=== PATIENT | female | born 1960 | race Caucasian/White ===

== ENCOUNTER 2017-12-24 10:42 | Emergency (ER) | payer OTHER ==
[~2017-12-24] VITALS: Ht 165.1 cm; Wt 63.5 kg
[2017-12-24 10:46] VITALS: Ht 165.1 cm; Wt 63.5 kg
[2017-12-24 12:23] LABS: microscopic required? NO
[2017-12-24 12:30] LABS: CALCIUM 9.7 mg/dL (8.5-10.1); CARBON DIOXIDE 28.1 mmol/L (21-32); CHLORIDE SERUM 104 mmol/L (98-107); CREATININE SERUM 0.7 mg/dL (0.6-1.0); GFR1 > 60 mL/min; GLUCOSE SERUM 93 mg/dL (74-106); POTASSIUM SERUM 4.7 mmol/L (3.5-5.1); SODIUM SERUM 138 mmol/L (136-145)
[2017-12-24 12:34] LABS: urine erythrocyte NEGATIVE (NEGATIVE)
[2017-12-24 12:35] LABS: ALBUMIN 3.9 g/dL (3.4-5.0); ALKALINE PHOSPHATASE 100 U/L (46-116); ALT/SGPT 51 U/L (14-59); AST/SGOT 29 U/L (15-37); BILIRUBIN TOTAL 0.6 mg/dL (0.20-1.00); TOTAL PROTEIN, SERUM 7.7 g/dL (6.4-8.2)
[2017-12-24 12:55] LABS: AMPHETAMINE QUAL UR NONE DETECTED (NEG <=1000)
[2017-12-24 13:17] LABS: RED CELL DISTRIBUTION WIDTH 14.6 % (11.5-14.5)
[2017-12-24 13:18] LABS: PLATELET COUNT 551 x10^3mcL (130-400)
[2017-12-24 13:22] LABS: MONOCYTE 8 % (0-7); SEGMENTED NEUTROPHILS 49 % (37-75); rbc morphology (normal/abnorm) ABNORMAL (NORMAL)
[2017-12-24 13:38] VITALS: BP 139/89
== END 2017-12-24 13:38 | disposition home or self-care (01) ==
LOC: ED 10:42
PROVIDERS: Emergency Medicine
DX: R06.02 Shortness of breath (principal); F12.10 Cannabis abuse, uncomplicated
CPT/HCPCS: 36415; 36600; J7613; J7644; Q0092

== ENCOUNTER 2018-05-01 11:04 | Emergency (ER) | payer OTHER ==
[~2018-05-01] VITALS: Ht 165.1 cm; Wt 67.6 kg
[2018-05-01 11:07] VITALS: Ht 165.1 cm; Wt 67.6 kg
[2018-05-01 12:51] LABS: CALCIUM 9.3 mg/dL (8.5-10.1); CARBON DIOXIDE 28.3 mmol/L (21-32); CHLORIDE SERUM 105 mmol/L (98-107); CREATININE SERUM 0.8 mg/dL (0.6-1.0); GFR1 > 60 mL/min; GLUCOSE SERUM 92 mg/dL (74-106); POTASSIUM SERUM 4.4 mmol/L (3.5-5.1); SODIUM SERUM 140 mmol/L (136-145)
[2018-05-01 12:54] LABS: ALBUMIN 3.8 g/dL (3.4-5.0); ALKALINE PHOSPHATASE 87 U/L (46-116); AMYLASE 87 U/L (25-115); AST/SGOT 16 U/L (15-37); BILIRUBIN TOTAL 0.61 mg/dL (0.20-1.00); LIPASE 315 IU/L (73-393); TOTAL PROTEIN, SERUM 7.9 g/dL (6.4-8.2)
[2018-05-01 12:55] LABS: BASOPHIL % 1.4 % (0-2); RED CELL DISTRIBUTION WIDTH 14.5 % (11.5-14.5)
[2018-05-01 13:03] LABS: PLATELET COUNT 426 x10^3mcL (130-400)
[2018-05-01 13:07] LABS: ALT/SGPT 19 U/L (14-59)
[2018-05-01 15:30] VITALS: BP 141/80
== END 2018-05-01 15:30 | disposition home or self-care (01) ==
LOC: ED 11:04
PROVIDERS: Emergency Medicine
DX: R10.31 Right lower quadrant pain (principal); R50.9 Fever, unspecified; R11.2 Nausea with vomiting, unspecified; R19.7 Diarrhea, unspecified
CPT/HCPCS: 83880; J1885; Q0092

== ENCOUNTER 2018-12-03 17:31 | Emergency (ER) | payer OTHER ==
[~2018-12-03] VITALS: Ht 165.1 cm; Wt 67.6 kg
[2018-12-03 17:52] VITALS: BP 127/90; Ht 165.1 cm; Wt 67.6 kg
== END 2018-12-03 19:26 | disposition home or self-care (01) ==
LOC: ED 17:31
DX: J06.9 Acute upper respiratory infection, unspecified (principal); J98.01 Acute bronchospasm; Z98.51 Tubal ligation status; Z90.710 Acquired absence of both cervix and uterus; Z98.890 Other specified postprocedural states